=== PATIENT | female | born 2000 | race Two or more races ===

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

== ENCOUNTER 2022-12-26 20:01 | Emergency (ER) | payer MEDICAID | END 2022-12-26 21:25 | disposition left against medical advice (07) | LOC: ER 20:01 | DX: O26.892 Other specified pregnancy related conditions, second trimester (principal); J45.901 Unspecified asthma with (acute) exacerbation; Z3A.23 23 weeks gestation of pregnancy; Z53.21 Procedure and treatment not carried out due to patient leaving prior to being seen by health care provider ==